=== PATIENT | male | born 1985 | race African-American/Black ===

== ENCOUNTER → 2018-11-07 | Outpatient (CLI) | payer OTHER ==
--- NOTE | 2018-11-07 09:42 | REP ---
Right wrist four views : There is no fracture or dislocation. Mineralization and joint spaces are normal. There are no calcifications or foreign bodies. Impression: Negative right wrist . Electronically Signed by Juan Blanco MD 11/07/2018 09:34 A
== END ==
LOC: M RAD 08:28
PROVIDERS: ATTEND Surgery
DX: M25.531 Pain in right wrist (principal)